=== PATIENT | female | born 1990 | race Two or more races ===

== ENCOUNTER 2018-02-27 22:00 | Emergency (ER) | payer OTHER ==
[~2018-02-27] VITALS: Ht 167.6 cm; Wt 113.4 kg
[2018-02-27 22:07] VITALS: BP 141/85
[2018-02-28] MEDS ORDERED: HYDROcodone-ACET 10/325MG TAB PO ONE (03:15)
== END 2018-02-28 04:02 | disposition home or self-care (01) ==
LOC: ER 22:00
DX: S33.5XXA Sprain of ligaments of lumbar spine, initial encounter (principal); W01.0XXA Fall on same level from slipping, tripping and stumbling without subsequent striking against object, initial encounter; Y93.89 Activity, other specified; Y99.8 Other external cause status; Y92.89 Other specified places as the place of occurrence of the external cause
CPT/HCPCS: 72070; 72100; 81025